=== PATIENT | female | born 1985 | race Asian ===

== ENCOUNTER 2021-11-16 16:12 | Emergency (ER) | payer OTHER, MEDICAID, SELFPAY ==
[2021-11-16 16:21] VITALS: BP 121/76; PULSE 95; RESP 20; TEMP 36.7; O2SAT 100; BMI 26.9
--- NOTE | 2021-11-16 17:23 | ED_ITS ---
HPI - General Adult General Time Seen by Provider: 17:23 Date Seen: 11/16/21 Chief complaint: Abdominal Pain Stated complaint: Lower Abdominal Pain Time Seen by Provider: 11/16/21 17:19 Source: patient and RN notes reviewed Mode of arrival: ambulatory Limitations: no limitations History of Present Illness HPI narrative: Patient is seen today in the ER after referral from women[facility]. She was having right sided abdominal pain a generalizes out into the abdomen since Friday. It has gotten progressively worse. It does seem like it comes in spasms or waves of worsening. She states it is almost like cramping. She had a pelvic ultrasound that was read by Radiology as negative. The field sales representative did note uterine prolapse which the patient has known she has had for about 4 years. She does not feel anything prolapsing out further. The field sales representative noted that she had increased pain when the probe came in contact with her cervix. She has not had any fevers, appetite has been okay, no nausea vomiting or diarrhea. Denies any urinary symptoms. No vaginal discharge. She had a negative urine HCG in clinic today. She is up pacing in the room due to the pain. She feels it radiating even into her groin. No history of kidney stones that she is aware of. Related Data Home Medications Medication Instructions Recorded Confirmed norgestimate 0.18 mg/0.215 mg/0.25 1 tab PO Q24H 11/16/21 11/16/21 mg-ethinyl estradiol 25 mcg tablet ([id number]) Allergies Allergy/AdvReac Type Severity Reaction Status Date / Time No Known Drug Allergies Allergy Verified 11/16/21 15:36 Review of Systems Status of ROS: Reports: 10 or more systems reviewed and unremarkable except as noted in History and below [facility] Surgical History (Updated 11/16/21 @ 17:41 by Fidelina Zepeda CNM) [place] teeth removed Social History Smoking Status: Never smoker Exam Const: Vital Signs, click to edit/add: Vital Signs - 24 hr 11/16/21 16:21 Temperature 98.1 F Pulse Rate [Right Pulse Oximeter] 95 Respiratory Rate 20 Blood Pressure [Le ft Upper Arm] 121/76 Pulse Oximetry 100 Oxygen Delivery Me thod Room Air Documenting provider has reviewed patient's vital signs: yes Common normals: average body habitus, oriented x3, no limitations, healthy appearing and alert General appearance: cooperative and in distress (Up pacing in the room) moderate HENMT: Common normals: normocephalic, head/scalp atraumatic, hearing grossly normal bilaterally, external ears normal, EAC's normal, external nose normal, nasal mucous membranes and turbinates normal, moist oral mucous membranes, oropharynx normal, dentition normal and gingiva normal Head and scalp: normocephalic and atraumatic Nose: external nose normal and nasal mucous membranes and turbinates normal External ear: external ears normal External auditory canal: EAC's normal Eye: Common normals: PERRL, EOMs intact bilaterally, conjunctivae normal and no scleral icterus Conjunctiva: conjunctiva(e) normal Pupil: PERRL Neck & C-Spine: Common normals: full ROM, no lymphadenopathy, supple, no meningeal signs, no JVD and thyroid normal Thyroid: thyroid normal Resp: Common normals: normal respiratory effort, no retractions, no use of accessory muscles and clear to auscultation bilaterally Auscultation: clear to auscultation bilaterally Cardio: Common normals: no JVD, regular rate, regular rhythm, S1 normal heart sound, S2 normal heart sound, no gallops, no clicks and no murmurs Rate: regular rate Rhythm: regular rhythm Heart sounds: S1 normal and S2 normal GI: Common normals: Normal to inspection, nondistended, normoactive bowel sounds present, soft to palpation, no hepatosplenomegaly, no masses and no bruits Palpation: soft, tender (Right lower quadrant and generalized out to lower abdomen/paraumbilical) and no hepatosplenomegaly : Common normals: no CVA tenderness Bladder/kidney exam: no CVA tenderness Back & Pelvis: Common normals: no CVA tenderness Neuro: Common normals: oriented x3 Sensorium/orientation: alert Meningeal signs: no meningeal signs Course Course Hospital Course: I am highly doubtful that uterine prolapse will give her acute abdominal pain of this nature. We will proceed with a CT noncontrast of her abdomen. The colicky nature and the inability to get comfortable really appears more like renal colic. We will obtain labs including urinalysis, CT abdomen pelvis noncontrast to better delineate this and help us to ensure there is no surgical pathology. I will order 30 mg IV Toradol, will reassess to make sure that this is improving her pain. Reevaluation(s) Reevaluation #1: Brought patient to report of her CT, reviewed that there is a solitary focus of an inflamed diverticulum. This would be consistent with diverticulitis. Pain returning again, will give morphine/zofran. Will initiate Unasyn IV for antibiotics. Time: 19:39 Vital Signs Vital signs: Initial Vital Signs Temperature 98.1 F 11/16/21 16:21 Temperature Source Temporal Artery Scan 11/16/21 16:21 Pulse Rate 95 11/16/21 16:21 Respiratory Rate 20 11/16/21 16:21 Blood Pressure 121/76 11/16/21 16:21 Blood Pressure Mean 91 11/16/21 16:21 Blood Pressure Position Sitting 11/16/21 16:21 Pulse Oximetry 100 11/16/21 16:21 Oxygen Delivery Method 11/16/21 16:21 Vital Signs Temperature 98.1 F 11/16/21 16:21 Pulse Rate 95 11/16/21 16:21 Respiratory Rate 20 11/16/21 16:21 Blood Pressure 121/76 11/16/21 16:21 Pulse Oximetry 100 11/16/21 16:21 Oxygen Delivery Method 11/16/21 16:21 Temperature 98.1 F 11/16/21 16:21 Pulse Rate 95 11/16/21 16:21 Respiratory Rate 20 11/16/21 16:21 Blood Pressure 121/76 11/16/21 16:21 Pulse Oximetry 100 11/16/21 16:21 Oxygen Delivery Method 11/16/21 16:21 Medical Decision Making Lab Data Lab results reviewed: Yes I reviewed the patient's lab results Labs: Lab Results 11/16/21 11/16/21 11/16/21 Range/Units 17:10 17:10 17:10 WBC 8.48 (4.50-11.00) K/uL RBC 4.81 (4.00-5.20) m/uL Hgb 12.5 (12.0-16.0) gm/dL Hct 39.8 (33.0-51.0) % MCV 83 (80-100) fL MCH 26 (26-34) pg MCHC 31 L (32-36) gm/dL RDW Coeff of Dominguez 12.7 (11.5-15.5) % Plt Count 336 (140-440) K/uL Neut % (Auto) 68.2 (42.0-72.0) % Lymph % (Auto) 24.9 (20-44) % [place]rick % (Auto) 4.8 (0.0-11.0) % Eos % (Auto) 1.5 (0.0-7.0) % Baso % (Auto) 0.5 (0.0-3.0) % Neut # (Auto) 5.78 (1.7-7.0) K/uL Lymph # (Auto) 2.11 (0.90-2.90) K/uL Warrick # (Auto) 0.40 (0.00-0.90) K/UL Eos # (Auto) 0.13 (0.00-0.50) K/uL Baso # (Auto) 0.04 (0.00-0.30) K/uL Abs Immat Gran (auto) 0.01 (0.00-0.30) K/uL Sodium 139 (135-149) mmol/L Potassium 3.8 (3.6-5.1) mmol/L Chloride 102 (96-114) mmol/L Carbon Dioxide 26 (20-32) mmol/L BUN 4 L (5-24) mg/dL Creatinine 0.7 (0.5-1.5) mg/dL Estimated Creat Clear 90.14 Estimated GFR 113 ml/min Glucose 110 (60-115) mg/dL Lactate (0.5-1.9) mmol/L Calcium 9.5 (8.4-10.6) mg/dL Total Bilirubin 0.3 (0.1-1.5) mg/dL AST 24 (12-35) U/L ALT 21 (4-35) U/L Alkaline Phosphatase 63 (40-150) U/L C-Reactive Protein 6.1 H (0.5-1.0) mg/dL Total Protein 8.3 (6.0-8.3) g/dL Albumin 4.6 (3.3-5.0) g/dL Urine Color Yellow (Yellow) Urine Appearance Clear (Clear) Urine pH 7.5 (5.0-8.5) Ur Specific [place] 1.015 (1.000-1.030) Urine Protein Negative (Negative) Urine Glucose (UA) Negative (Negative) Urine Ketones Negative (Negative) Urine Blood Negative (Negative) Urine Nitrite Negative (Negative) Urine Bilirubin Negative (Negative) Urine Urobilinogen 1.0 (0.2-1.0) Ur Leukocyte Esterase Trace A (Negative) Urine RBC 0-2 (0-2) Urine WBC 0-2 (0-5) Ur Squamous Epith Cells Many A (None-Few) Urine Bacteria None (None) SARS-CoV-2 (PCR) (Negative) 11/16/21 11/16/21 Range/Units 17:10 18:00 WBC (4.50-11.00) K/uL RBC (4.00-5.20) m/uL Hgb (12.0-16.0) gm/dL Hct (33.0-51.0) % MCV (80-100) fL MCH (26-34) pg MCHC (32-36) gm/dL RDW Coeff of Dominguez (11.5-15.5) % Plt Count (140-440) K/uL Neut % (Auto) (42.0-72.0) % Lymph % (Auto) (20-44) % Warrick % (Auto) (0.0-11.0) % Eos % (Auto) (0.0-7.0) % Baso % (Auto) (0.0-3.0) % Neut # (Auto) (1.7-7.0) K/uL Lymph # (Auto) (0.90-2.90) K/uL Warrick # (Auto) (0.00-0.90) K/UL Eos # (Auto) (0.00-0.50) K/uL Baso # (Auto) (0.00-0.30) K/uL Abs Immat Gran (auto) (0.00-0.30) K/uL Sodium (135-149) mmol/L Potassium (3.6-5.1) mmol/L Chloride (96-114) mmol/L Carbon Dioxide (20-32) mmol/L BUN (5-24) mg/dL Creatinine (0.5-1.5) mg/dL Estimated Creat Clear Estimated GFR ml/min Glucose (60-115) mg/dL Lactate 1.7 (0.5-1.9) mmol/L Calcium (8.4-10.6) mg/dL Total Bilirubin (0.1-1.5) mg/dL AST (12-35) U/L ALT (4-35) U/L Alkaline Phosphatase (40-150) U/L C-Reactive Protein (0.5-1.0) mg/dL Total Protein (6.0-8.3) g/dL Albumin (3.3-5.0) g/dL Urine Color (Yellow) Urine Appearance (Clear) Urine pH (5.0-8.5) Ur Specific [place] (1.000-1.030) Urine Protein (Negative) Urine Glucose (UA) (Negative) Urine Ketones (Negative) Urine Blood (Negative) Urine Nitrite (Negative) Urine Bilirubin (Negative) Urine Urobilinogen (0.2-1.0) Ur Leukocyte Esterase (Negative) Urine RBC (0-2) Urine WBC (0-5) Ur Squamous Epith Cells (None-Few) Urine Bacteria (None) SARS-CoV-2 (PCR) Negative SARS-CoV-2 (Negative) Imaging Data CT scan - abdomen: Attestation: I have reviewed the pertinent imaging results. Radiologist's impression: Patient: SKYLAR RUGGIERO Facility:?[facility] Patient ID:?[id number] Site Patient ID:?[id number]. Site :?[id number] Study:?CT Abdomen/Pelvis WITHOUT-11/16/2021 5:37:28 PM Ordering Physician:?Frank Tabor Final Report: INDICATION: Pelvic pain COMPARISON: Ultrasound of the pelvis from today. TECHNIQUE: CT examination of the abdomen and pelvis was performed without contrast enhancement using 3 mm thick axial sections from the lung bases through the pubic symphysis. Oral contrast was not administered. Please note that all CT scans at this facility use dose modulation, iterative reconstruction, and/or weight-based dosing when appropriate to reduce radiation dose to as low as reasonably achievable. FINDINGS: In the abdomen, the unenhanced liver, spleen, pancreas, and adrenals are normal in appearance. The unenhanced kidneys are normal in appearance. The gallbladder is normal in appearance. The abdominal aorta is normal in caliber with no sign of dilatation. There is no sign of retroperitoneal mass or adenopathy. The stomach, loops of small bowel, and colon in the abdomen are normal in appearance. There is a small fat containing periumbilical hernia. In the pelvis, the appendix is normal in appearance with no sign of inflammatory process. There is prominent inflammatory reaction around an inflamed diverticulum arising from the inferior sigmoid colon, findings of prominent diverticulitis. There is no sign of any additional diverticulosis elsewhere in the sigmoid colon. The loops of small bowel and rectum in the pelvis are normal in appearance. There is a 2.1 centimeter left ovarian cyst consistent with the appearance on ultrasound. The right ovary is normal in appearance. The uterus is normal in size, and there is inferior positioning of the cervix in the vagina, consistent with prolapse. There is a small amount of free fluid in the right pelvis, nonspecific. The urinary bladder is normal in appearance. There is no sign of pelvic or inguinal mass or adenopathy. There is no sign of free air or free fluid in the abdomen. There is no sign of free air or extraluminal air in the pelvis. The lung bases are clear. There is minimal scoliosis of the lumbar spine convex towards the right. IMPRESSION: CT of the pelvis shows prominent inferior sigmoid diverticulitis with a single, inflamed diverticulum. No sign of additional diverticulosis elsewhere in the sigmoid colon. Prolapse of the uterus through the vagina as seen on today`s ultrasound. 2.1 centimeter left ovarian cyst. Normal CT of the abdomen without contrast. Please note that all CT scans at this facility use dose modulation, iterative reconstruction, and/or weight-based dosing when appropriate to reduce radiation dose to as low as reasonably achievable. Dictated by Brian Mehta MD @ 11/16/2021 6:26:24 PM (Electronic Signature) Critical Care Time Critical Care Time Critical Care Time: No Discharge Plan Discharge Clinical Impression: Acute diverticulitis Patient Disposition: Home, Self-Care Condition: Stable Instructions: Diverticulitis (ED), Diverticulitis Diet (ED) Additional Instructions: Start oral antibiotic in the morning, have prescribed Augmentin 875 mg twice a day for 10 days. Can use Tylenol and ibuprofen as needed for pain management baseline. Script for oxycodone sent from [facility] for more severe pain, follow dosing instructions. If you are taking oxycodone, may need to use MiraLax and/or senna to prevent constipation from narcotics. Need to follow-up with your primary care provider next week for recheck. Activity Level: Activity as Tolerated Diet Detail: Follow handout on dietary recommendations while you have diverticulitis. Prescriptions: No Action norgestimate-ethinyl estradiol [[id number]] 0.18/0.215/0.25 mg-25 mcg tablet 1 tab PO Q24H Follow Up/Referrals: Provider,Not a Local [Primary Care Provider] - Stand Alone Forms: [employer] Info Instructions
[2021-11-16 17:35] LABS: Lactate* 1.7 mmol/L (0.5-1.9)
[2021-11-16 17:36] LABS: Basophils Absolute Auto 0.04 K/uL (0.00-0.30); Basophils Percent Auto 0.5 % (0.0-3.0); Eosinophils Absolute Auto 0.13 K/uL (0.00-0.50); Eosinophils Percent Auto 1.5 % (0.0-7.0); Hematocrit 39.8 % (33.0-51.0); Hemoglobin* 12.5 gm/dL (12.0-16.0); Immature Granulocytes Abs Auto 0.01 K/uL (0.00-0.30); Lymphocytes Absolute Auto 2.11 K/uL (0.90-2.90); Lymphocytes Percent Auto 24.9 % (20-44); Mean Corpuscular HGB Conc 31 gm/dL (32-36); Mean Corpuscular Hemoglobin 26 pg (26-34); Mean Corpuscular Volume 83 fL (80-100); Monocytes Percent Auto 4.8 % (0.0-11.0); Neutrophils Absolute Auto 5.78 K/uL (1.7-7.0); Neutrophils Percent Auto 68.2 % (42.0-72.0); Platelet Count* 336 K/uL (140-440); RDW Coefficient of Variation % 12.7 % (11.5-15.5); Red Blood Count 4.81 m/uL (4.00-5.20); White Blood Count* 8.48 K/uL (4.50-11.00)
[2021-11-16 17:39] LABS: Appearance Urine Clear (Clear); Bilirubin Urine Negative (Negative); Blood Urine Negative (Negative); Color Urine Yellow (Yellow); Glucose Urine Negative (Negative); Ketones Urine Negative (Negative); Leukocyte Esterase Urine Trace (Negative); Nitrite Urine Negative (Negative); Protein Urine Negative (Negative); Specific Gravity Urine 1.015 (1.000-1.030); pH Urine 7.5 (5.0-8.5)
[2021-11-16 17:47] LABS: Slide Review Reflex No
[2021-11-16 17:49] LABS: RBC Urine 0-2 (0-2); WBC Urine 0-2 (0-5)
[2021-11-16 17:50] LABS: Squamous Epithelial Cell Urine Many (None-Few)
[2021-11-16 17:56] LABS: Albumin* 4.6 g/dL (3.3-5.0); Chloride* 102 mmol/L (96-114); Sodium* 139 mmol/L (135-149)
[2021-11-16 17:57] LABS: Potassium* 3.8 mmol/L (3.6-5.1)
[2021-11-16 17:59] LABS: Bilirubin Total* 0.3 mg/dL (0.1-1.5); Creatinine* 0.7 mg/dL (0.5-1.5); Est. Creatinine Clearance* 90.14; Estimated Glomerular Filt Rate 113 ml/min
[2021-11-16 18:00] LABS: Alanine Aminotransferase* 21 U/L (4-35); Alkaline Phosphatase* 63 U/L (40-150); Aspartate Amino Transferase* 24 U/L (12-35); Blood Urea Nitrogen* 4 mg/dL (5-24); Calcium* 9.5 mg/dL (8.4-10.6); Carbon Dioxide* 26 mmol/L (20-32); Glucose* 110 mg/dL (60-115); Total Protein* 8.3 g/dL (6.0-8.3)
[2021-11-16 18:03] LABS: C Reactive Protein* 6.1 mg/dL (0.5-1.0)
[2021-11-16] MEDS: KETOROLAC 30 MG/ML inj IVP (18:03)
[2021-11-16 19:14] LABS: SARS PCR* Negative SARS-CoV-2 (Negative)
[2021-11-16] MEDS: MORPHINE 4 MG/ML INJ IVP (19:47)
[2021-11-16] MEDS: ONDANSETRON 2 MG/ML inj 4 MG IVP (19:47)
[2021-11-16] MEDS: AMPICILLIN/SULBACTAM 3 GM in 0.9 % SODIUM CHLORIDE Mini-bag 100 ML IVPB (19:55)
[2021-11-16] MEDS: MORPHINE 2 MG/ML inj IVP (20:46)
--- NOTE | 2021-11-16 21:16 | ED.NURSE ---
Pt was able to get 2 Rxs from [facility] machine. [facility] [place] pharmacy called and message left to cancel RX for augmentin
== END 2021-11-16 21:28 | disposition home or self-care (01) ==
PROVIDERS: Emergency Provider Family Medicine
DX: K57.92 Diverticulitis of intestine, part unspecified, without perforation or abscess without bleeding (principal)
CPT/HCPCS: 36415; 74176; 76830; 76856; 80053; 81001; 83605; 85025; 86140; 87635; 96365; 96375; 96376; 99284; 99285; J0295; J1885; J2270; J2405

== ENCOUNTER 2022-06-21 09:13 | Outpatient (CLI) | payer OTHER, MEDICAID, SELFPAY ==
[2022-06-21 10:39] LABS: HCG Qualitative* Negative (Negative)
== END 2022-06-21 09:14 | disposition home or self-care (01) ==
PROVIDERS: PCP Family Medicine; Visit Provider Internal Medicine
DX: R93.3 Abnormal findings on diagnostic imaging of other parts of digestive tract (principal); K57.30 Diverticulosis of large intestine without perforation or abscess without bleeding
CPT/HCPCS: 45380; 84703; 88305; J2250; J3010

== ENCOUNTER 2023-07-07 10:13 | Outpatient (CLI) | payer OTHER, SELFPAY ==
--- NOTE | 2023-07-07 10:45 | US_ITS ---
Patient: SKYLAR RUGGIERO Facility:?[facility] Patient ID:?[id number] Site Patient ID:?[id number]. Site :?[id number] Study:?US-Pelvis PELVIS TA & TV-07/07/2023 11:02:40 AM Ordering Physician:?MARY CARMEN CAMPBELL M.D. Final Report: INDICATION: Infertility TECHNIQUE: Transabdominal and transvaginal scanning was performed. Transvaginal scanning was performed to optimally evaluate the endometrium and adnexa. Ovarian blood flow was evaluated with color-flow and pulsed Doppler. COMPARISON: None. FINDINGS: The uterus is normal in size and shape and is retroflexed. The uterus measures 7.6 x 4.6 x 4.9 cm. No myometrial mass is evident. The endometrial stripe is normal in thickness at 4 mm. The ovaries are normal in size and contain a number of follicles. The right ovary measures 2.6 x 1.6 x 1.4 cm and left 2.7 x 2.0 x 1.2 cm. Ovarian blood flow is demonstrated with color-flow and pulsed Doppler. No adnexal mass is evident. No free fluid is demonstrated. IMPRESSION: Negative pelvic ultrasound. Dictated by Jeovany Shipley MD @ 07/07/2023 4:35:52 PM Signed by:?Jeovany Shipley MD @07/07/2023 4:35:52 PM (Electronic Signature)
== END 2023-07-07 10:14 | disposition home or self-care (01) ==
LOC: US 10:14
PROVIDERS: PCP Family Medicine; Visit Provider Internal Medicine Hematology & Oncology
DX: N97.9 Female infertility, unspecified (principal)
CPT/HCPCS: 76830; 76856

== ENCOUNTER 2023-09-29 10:52 | Outpatient (CLI) | payer OTHER, SELFPAY ==
--- OUTSIDE RECORDS SUMMARY | 2023-09-29 10:58 | XMS_ITS | Clinical Summary ---
Author Organization [facility] Address [address] [place] [address] Care Team Providers Care Hedis Abstractor Name Role Phone Drake Anderson MD Primary Care Provider [phone] Source Comments You are receiving this document as you are listed as the primary care provider,follow-up provider, or the patient has been referred to you for consultation.This is in compliance with the Medicare and[facility] EHR Incentive Program,which states Providers who transition their patient to another setting of careor provider of care or refers their patient to another provider of care shouldprovide summary care record for each transition of care or referral. [facility] Allergies No known active allergies Medications Medication Sig Dispensed Refills Start Date End Date Status 27-0.8 MG tablet Take 1 Tablet by mouth daily. Active letrozole (FEMARA) 2.5 MG tablet Take 1 Tablet (2.5 mg) by mouth daily for 5 days. 5 Tablet 2 09/15/2023 Active levonorgestrel-ethi nyl estrad (ALESSE) 0.1-20 MG-MCG tabletIndications:E ncounter for surveillance of contraceptive pills Take 1 Tablet by mouth daily. 84 Tablet 3 12/25/2022 09/25/2023 Discontinued Active Problems Problem Noted Date Diagnosed Date Infertility, female, secondary 09/15/2023 Diminished ovarian reserve 09/15/2023 Vaginal prolapse 01/22/2023 Ovarian cyst 11/16/2021 Acute diverticulitis 11/16/2021 History of prolapse of bladder 05/30/2017 S/P D&C (status post dilation and curettage) Indication for care in labor or delivery 016 Resolved Problems Problem Noted Date Diagnosed Date Resolved Date Prolapse of female pelvic organs 06/26/2023 06/26/2023 Female cystocele 06/26/2023 06/26/2023 Pelvic pain 06/26/2023 06/26/2023 Encounters Date Type Department Care Team Description 09/24/2023 10:55 PM CDT E-Visit [facility] [address] [place] [address] Arabella Polanco MD Chief Comp: QUESTIONS, GENERAL 09/15/2023 1:40 PM CDT Office Visit [facility] [address] [place] [address] Arabella Polanco MD Infertility, female, secondary (Primary Dx); Diminished ovarian reserve 08/21/2023 6:50 PM CDT E-Visit [address] [address] Drake Anderson MD Chief Comp: QUESTIONS, GENERAL 08/12/2023 4:40 PM CDT E-Visit [facility] [address] [place] [address] Arabella Polanco MD Chief Comp: QUESTIONS, GENERAL 07/21/2023 9:30 AM CDT Lab Visit [facility] [address] [place] [address] Infertility, female, secondary 07/09/2023 Telephone [facility] [address] [place] [address] Arabella Polanco MD Lab Questions 07/08/2023 Orders Only [address] [address] Drake Anderson MD 07/03/2023 Telephone [facility] [address] [place] [address] Arabella Polanco MD Orders Needed (Metallographic Technician ultrasound ) 07/01/2023 2:25 PM CDT Lab Visit [facility] [address] [place] [address] Infertility, female, secondary 07/01/2023 1:40 PM CDT Office Visit [facility] [address] [place] [address] Arabella Polanco MD Infertility, female, secondary (Primary Dx); Irregular menses from Last 3 Months Immunizations Name Administration Dates Next Due Influenza IIV4 (Quadrivalent) 0.5mL (70757) 09/2021,12/31/2020 Moderna Monovalent 12+ 05/04/2021,05/01/2020, Tdap 11/01/2020 Family History Medical History Relation Name Comments Diabetes, Type II Father Cataract Mother Thyroid Disorder Mother Inflammatory Bowel Disease Brother Relation Name Status Comments Father Alive Mother Alive Brother Alive Maternal Grandfather Maternal Grandmother Paternal Grandfather Paternal Grandmother Sister 1 Alive Sister 2 Alive Social History Tobacco Use Types Packs/Day Years Used Date Smoking Tobacco: Never Smokeless Tobacco: Never Tobacco Cessation:Counseling Given: Not Answered Alcohol Use Standard Drinks/Week Comments Yes 0 (1 standard drink = 0.6 oz pur e alcohol) occasions/ events PHQ-2 Answer Date Recorded PHQ-2 Score 0 12/25/2022 Financial Resource Strain Answer Date R ecorded Is it hard for you to pay fo r the very basics like food, housing, medical care or heating? No 12/24/2022 Food Insecurity Answer Date Recorded Does your food run out before you have the money to buy more? No 12/24/2022 Transportation Needs Answer Date Record ed Does a lack of transportatio n keep you from your medical appointments or from getting your medications? No 023 Sex and Gender Information Value Date Recorded Sex Assigned at Female 11/20/2021 8:01 AM CDT Gender Identity Female 11/20/2021 8:01 AM CDT Sexual Orientation Straight 11/20/2021 8: 01 AM CDT Last Filed Vital Signs Vital Sign Reading Time Taken Comments Blood Pressure 106/76 09/15/2023 1:39 PM CDT Pulse 83 09/15/2023 1:39 PM CDT Temperature - - Respiratory Rate 18 12/14/2019 2:13 PM CDT Oxygen Saturation - - Inhaled Oxygen Concentration - - Weight 73.5 kg (162 lb) 09/15/2023 1:39 PM CDT Height 160 cm (5' 2.99) 12/25/2022 10:09 AM CDT Body Mass Index 28.7 12/25/2022 10:09 AM CDT Plan of Treatment Upcoming Encounters Date Type Department Care Team (Late st Contact Info) Description 10/13/2023 8:40 AM CDT Appointment [facility] [address] [place] [address] Health Maintenance Due Date Last Done Comments Mammogram 1983 HepB (1) 09/04/2002 Colonoscopy 06/22/2022 06/21/2022, 06/21/2022 COVID-19 Vaccine ( season) 2022 05/04/2021, 05/01/2020, 04/03/2020 Influenza (#1) 2023 01/21/2022, 12/31/2020 Prediabetes: HGBA1C 06/30/2024 07/01/2023, 12/25/2022, 12/21/2021, Additional history exists Cervical Cancer Screening 12/13/2024 12/14/2019 Adult Preventive Visit 12/25/2024 , 12/21/2021, 12/14/2019 DTaP/Tdap/Td (2 - Tdap) 11/01/2030 11/01/2020 Zoster/Shingles (1 of 2) 09/04/2033 HIV Screening (Preventive Services) Completed 12/18/2019 Hep C Screening (Preventive Services) Completed 12/21/2021 HPV Vaccine Aged Out No longer eligi ble based on patient's age to complete this topic HepA Aged Out No longer eligi ble based on patient's age to complete this topic Hib Aged Out No longer eligi ble based on patient's age to complete this topic IPV (Polio) Aged Out No longer eligi ble based on patient's age to complete this topic MCV4 Aged Out No longer eligi ble based on patient's age to complete this topic Pneumococcal Aged Out No longer eligi ble based on patient's age to complete this topic Procedures Procedure Name Priority Date/Time Associated Diagnosis Comments PROGESTERONE ADULT Routine 07/21/2023 9: 26 AM CDT Infertility, female, secondary ULTRASOUND SC 07/08/2023 PROLACTIN Routine 07/01/2023 2:52 PM CDT Infertility, female, secondary ESTRADIOL Routine 07/01/2023 2:52 PM CDT Infertility, female, secondary LH Routine 07/01/2023 2:52 PM CDT Infertility, female, secondary FSH Routine 07/01/2023 2:52 PM CDT Infertility, female, secondary ANTI-MULLERIAN HORMONE,ADULT FEMALE Routine 07/01/2023 2:52 PM CDT Infertility, female, secondary PROLACTIN WITH REFLEX TO MACROPROLACTIN Routine 07/01/2023 2:52 PM CDT Infertility, female, secondary TSH, SENSITIVE (WITH REFLEX) Routine 07/01/2023 2:52 PM CDT Infertility, female, secondary HGB A1C Routine 07/01/2023 2:52 PM CDT Infertility, female, secondary COLONOSCOPY S 06/21/2022 HEPATITIS C ANTIBODY, WITH REFLEX Routine 12/21/2021 9:45 AM CDT Need for hepatitis C screening test HIV 1/2 AG/AB 4TH GEN Routine 12/18/2019 8:57 AM CDT Screening for HIV (human immunodeficiency virus) PAP TEST Routine 12/14/2019 3:14 PM CDT Screening for malignant neoplasm of cervix from Last 3 Months or Most Recently Relevant to Health Maintenance Results * Progesterone Adult (07/21/2023 9:26 AM CDT) Progesterone, Adult 13.9 ng/mL 07/21/2023 3:[address] [facility] Blood Venipuncture / Unknown 07/21/2023 9:26 AM CDT 07/21/2023 9:[address] [facility] - 07/21/2023 3:32 PM CDT Expected values for menstruating females Follicular Phase: <0.1-0.3 ng/mL Luteal Phase: 1.2-15.9 ng/mL Expected values for females 1st Trimester (4-12 weeks): 2.8-147.3 ng/mL 2nd Trimester (13-24 weeks): 22.5-95.3 ng/mL 3rd Trimester (25-36 weeks): 27.9-242.5 ng/mL rAabella Polanco MD LAB_1 Performing Organization Address [facility] Co de Phone Number [facility] [address] * ULTRASOUND SC (07/08/2023) Anatomical Region Laterality Modality Other Drake Anderson MD DUMMY/OTHER/AR * Prolactin (07/01/2023 2:52 PM CDT) Prolactin 7.3 3.3 - 26.7 ng/mL 07/02/2023 9:[address] [facility] Blood Venipuncture / Unknown 07/01/2023 2:52 PM CDT 07/01/2023 2:52 PM CDT Arabella Polanco MD LAB_1 Performing Organization Address [facility] Co de Phone Number [facility] [address] * (ABNORMAL) Anti-Mullerian Hormone, Adult Females (07/01/2023 2:52 PM CDT) Anti-M??lleri an Hormone, Adult Females 0.13(L) 0.18 - 5.68 ng/mL 07/02/2023 10:45 AM CDT [facility] Blood Venipuncture / Unknown 07/01/2023 2:52 PM CDT 07/01/2023 2:52 PM CDT Arabella Polanco MD LAB_1 Performing Organization Address [facility] de Phone Number [facility] [address] * Estradiol (07/01/2023 2:52 PM CDT) Estradiol 20 pg/mL 07/01/2023 8:05 PM CDT [facility] Blood Venipuncture / Unknown 07/01/2023 2:52 PM CDT 07/01/2023 2:52 PM CDT Narrative [facility] - 07/01/2023 8:05 PM CDT The drug mifepristone may cause interference with the estradiol assay leading to significant falsely elevated estradiol results for up to two weeks following last dose. Expected values for menstruating females Follicular phase: 21-251 pg/mL Mid cycle phase: 38-649 pg/mL Luteal phase: 21-312 pg/mL Expected values for post menopausal females On HRT: <10-144 pg/mL Not on HRT: <10-28 pg/mL Arabella Polanco MD LAB_1 Performing Organization Address [facility] de Phone Number [facility] [address] * LH (07/01/2023 2:52 PM CDT) LH 15 mIU/mL 07/01/2023 8:05 PM CDT [facility] Blood Venipuncture / Unknown 07/01/2023 2:52 PM CDT 07/01/2023 2:52 PM CDT Narrative [facility] - 07/01/2023 8:05 PM CDT Expected values for menstruating females Follicular Phase: 2-12 mIU/mL Mid-Cycle Peak: 8-89 mIU/mL Luteal Phase: 1-14 mIU/mL Expected values for postmenopausal females On HRT: 5-62 mIU/mL Arabella Polanco MD LAB_1 Performing Organization Address [facility] Co de Phone Number [facility] [address] [place] [address] * FSH (07/01/2023 2:52 PM CDT) FSH 20.5 mIU/mL 07/01/2023 8:[address] [facility] Blood Venipuncture / Unknown 07/01/2023 2:52 PM CDT 07/01/2023 2:[address] [facility] - 07/01/2023 8:05 PM CDT Expected values for mensturating females Follicular Phase: 3.0-8.1 mIU/mL Mid-Cycle Peak: 2.6-16.7 mIU/mL Luteal Phase: 1.4-5.5 mIU/mL Post Menopausal Females without HRT: 26.8-133.4 mIU/mL Arabella Polanco MD LAB_1 Performing Organization Address [facility] Co de Phone Number [facility] [address] [place] [address] * TSH with reflex to fT4 (not for treatment monitoring) (07/01/2023 2:52 PM CDT) TSH, Reflex 2.25 0.30 - 4.50 uIU/mL 07/01/2023 7:05 PM CDT [facility] Blood Venipuncture / Unknown 07/01/2023 2:52 PM CDT 07/01/2023 2:52 PM CDT Arabella Polanco MD LAB_1 Performing Organization Address [facility] Co de Phone Number [facility] [address] * (ABNORMAL) Hgb A1C (07/01/2023 2:52 PM CDT) Hemoglobin A1C 5.8(H) <=5.6 % 07/01/2023 8:[address] [facility] Estimated Average Glucose (Calc) 120 < 117 mg/dL 07/01/2023 8:[address] [facility] Comment:Estimated average gl ucose (eAG) converts A1c into glucose units (mg/dL) and estimates average glucose over the past approximately 3 months. The eAG reference interval (<117 mg/dL) corresponds to an A1c of <5.7%. Blood Venipuncture / Unknown 07/01/2023 2:52 PM CDT 07/01/2023 2:[address] [facility] - 07/01/2023 8:37 PM CDT For patients not previously diagnosed with diabetes: 5.7-6.4%: Increased risk for diabetes 6.5% and greater: Diagnostic for diabetes For patients diagnosed with diabetes: <8.0%: Goal of therapy for ages 18-75 Clinicians may recommend a higher or lower goal for specific individuals. Arabella Polanco MD LAB_1 [facility] [address] * COLONOSCOPY S (06/21/2022) Drake Anderson MD DUMMY/OTHER/AR * Hepatitis C Antibody, with Reflex (12/21/2021 9:45 AM CDT) Pathologist [facility] Hepatitis C Antibody Negative (Non Reactive) Negative (Non Reactive) 12/21/2021 4:[address] [facility] Comment:Antibodies to HCV no t detected. Does not exclude the possiblity of exposure to HCV. Blood Venipuncture / Unknown 12/21/2021 9:45 AM CDT 12/21/2021 9:45 AM CDT Drake Anderson MD LAB_1 [facility] [address] [place] [address], [facility] [phone] * HIV 1/2 Ag/Ab 4th Generation (12/18/2019 8:57 AM CDT) [facility] HIV 1/2 Antigen/Anti body (4th generation) Negative (Non Reactive) Negative (Non Reactive) 12/20/2019 12:[address] [facility] Comment:HIV-1 p24 Antigen an d HIV-1/HIV-2 Antibody not detected Blood Venipuncture / Unknown 12/18/2019 8:57 AM CDT 12/18/2019 8:57 AM CDT Drake Anderson MD LAB_1 Performing Organization Address City/[facility]/ZIP Co de Phone Number [facility] [address] [place] [address], [facility] [phone] * PAP Test (12/14/2019 3:14 PM CDT) [facility] Case Report Pap ? Case: [id number] ? Authorizing Provider: ??Drake Anderson MD ?Collected: ? 12/14/2019 1514 ? Ordering Location: ? [facility] ?Received: ?12/14/2019 1520 ? Practice ? First Screen: ?Kat Wagner CT ? (ASCP) ? Specimen: ?Pap Test, Routine, Cervix/Endocervix ? 12/20/2019 7:01 AM [facility] Pap Specimen Adequacy Satisfactory for evaluation, endocervical/mcginnis sformation zone component absent. 12/20/2019 7:01 AM [facility] Pap Interpretation Negative for intraepithelial lesion or malignancy (NILM). 12/20/2019 7:01 AM [facility] Pap Disclaimer The Pap test is a screening test designed to aid in the detection of cervical cancer and its precursor lesions. It is not a diagnostic procedure and should not be used as the sole means of detecting cervical cancer. Both false-positive and false-negative results may occur. 12/20/2019 7:01 AM [facility] Gross Description The specimen is received in SurePath fixative and properly labeled. 1 Pap-stained SurePath slide is prepared. 12/20/2019 7:01 AM [facility] Embedded Images 0 7:01 AM [facility] Other Specimen Type ENTIRE ENDOCERVIX / Unknown 12/14/2019 3:14 PM CDT 12/14/2019 3:20 PM CDT Comment:LMP: No LMP recorded . Drake Anderson MD LAB PATHOLOGY [address] [address], [facility] [phone] from Last 3 Months or Most Recently Relevant to Health Maintenance Care Teams Hedis Abstractor Relationship Specialty [place] [address] [place] [address] PCP - General Family Practice 05/24/20
--- OUTSIDE RECORDS SUMMARY | 2023-09-29 10:58 | XMS_ITS | Encounter Summary ---
Author Organization [facility] Address [address] [place] [address] Care Team Providers Care Charger Name Role Phone Drake Anderson MD Primary Care Provider [phone] Reason for Visit * Reason Comments QUESTIONS, GENERAL Entered automaticall y based on patient selection in [employer]. Encounter Details Date Type Department Care Team (Late st Contact Info) Description 09/24/2023 10:55 PM CDT E-Visit [facility] [address] [place] [address] [place] [address] [place] [address] Chief Comp: QUESTIONS, GENERAL Social History Tobacco Use Types Packs/Day Years Used Date Smoking Tobacco: Never Smokeless Tobacco: Never Alcohol Use Standard Drinks/Week Comments Yes 0 [...] Orientation Straight 11/20/2021 8: 01 AM CDT documented as of this encounter Plan of Treatment Upcoming Encounters Date Type Department Care Team (Late st Contact Info) Description 10/13/2023 8:[address] [facility] [address] [place] [address] documented as of this encounter Visit Diagnoses Not on filedocumented in this encounter Care Teams Charger Relationship Specialty [place] [address] [place] [address] PCP - General Family Practice 05/24/20 documented as of this encounter
--- OUTSIDE RECORDS SUMMARY | 2023-09-29 10:58 | XMS_ITS | Clinical Summary ---
Author Organization [facility] Address [place], [place] [address] Care Team Providers Care Transition Program Manager Name Role Phone Drake Anderson MD Primary Care Provider + [phone] Allergies No known active allergies Medications No known medications Social History Tobacco Use Types Packs/Day Years Used Date Smoking Tobacco: Never Smokeless Tobacco: Never Tobacco Cessation:Counseling Given: Not Answered Alcohol Use Standard Drinks/Week Comments Not Currently 0 (1 standard drink = 0.6 oz pur e alcohol) Sex and Gender Information Value Date Recorded Sex Assigned at Not on file Gender Identity Not on file Sexual Orientation Not on file Obstetrics History Last Filed Vital Signs Vital Sign Reading Time Taken Comments Blood Pressure 116/69 05/20/2022 2:13 PM PAYROLL OFFICER Pulse 79 05/20/2022 2:13 PM PAYROLL OFFICER Temperature 37 ??C (98.6 ??F) 05/20/2022 2:13 PM PAYROLL OFFICER Respiratory Rate 20 05/20/2022 2:13 PM PAYROLL OFFICER Oxygen Saturation 100% 05/20/2022 2:13 PM PAYROLL OFFICER Inhaled Oxygen Concentration - - Weight - - Height - - Body Mass Index - - Plan of Treatment Health Maintenance Due Date Last Done Comments Tdap 09/04/1994 Depression screening for age 12+ 1995 HIV for age 15-65 09/04/1998 BMI (ht and wt on same day) for age 18+ 09/04/2001 Hepatitis C screening for ag e 18-79 09/04/2001 Tetanus booster 2003 Pap test for age 21-65 09/04/2004 COVID-19 vaccine series ( season) 2022 05/04/2021, 05/01/2020, 04/03/2020 Influenza for age 9-49 11/16/2023 Pneumococcal series for age 6-64 Aged Out No longer eligible b ased on patient's age to complete this topic Care Teams Transition Program Manager Relationship Specialty [place] [address] [place] [address] PCP - General Family Practice 05/20/22
--- OUTSIDE RECORDS SUMMARY | 2023-09-29 10:59 | XMS_ITS | Encounter Summary ---
Author Organization [facility] Address [address] [place] [address] Care Team Providers Care Airframe Design Engineer Name Role Phone Drake Anderson MD Primary Care Provider [phone] Reason for Visit * Reason Comments QUESTIONS, GENERAL Entered automaticall y based on patient selection in [employer]. Encounter Details Date Type Department Care Team (Late st Contact Info) Description 08/21/2023 6:50 PM CDT E-Visit [facility] [id number] [place] [address] [place] [address] [place], [place] [id number] Chief Comp: QUESTIONS, GENERAL Social History Tobacco [...] Info) Description 10/13/2023 8:40 AM CDT Appointment [facility] [address] [place] [address] documented as of this encounter Visit Diagnoses Not on filedocumented in this encounter Care Teams Airframe Design Engineer Relationship Specialty [place] [address] [place] [address] PCP - General Family Practice 05/24/20 documented as of this encounter
--- OUTSIDE RECORDS SUMMARY | 2023-09-29 10:59 | XMS_ITS | Encounter Summary ---
Author Organization [facility] Address [address] [place] [address] Care Team Providers Care Grassland Conservationist Name Role Phone Drake Anderson MD Primary Care Provider Reason for Visit * Reason Comments INFERTILITY Encounter Details Date Type Department Care Team (Late st Contact Info) Description 09/15/2023 1:40 PM CDT Office Visit [facility] [id number] [place] [address] [place] [id number] [place] [address] Infertility, female, secondary (Primary Dx); Diminished ovarian reserve Social History Tobacco Use Types Packs/Day Years [...] AM CDT documented as of this encounter Last Filed Vital Signs Vital Sign Reading Time Taken Comments Blood Pressure 106/76 09/15/2023 1:39 PM CDT Pulse 83 09/15/2023 1:39 PM CDT Temperature - - Respiratory Rate - - Oxygen Saturation - - Inhaled Oxygen Concentration - - Weight 73.5 kg (162 lb) 09/15/2023 1:39 PM CDT Height - - Body Mass Index 28.7 12/25/2022 10:09 AM CDT documented in this encounter Patient Instructions * Patient Instructions* Arabella Polanco MD - 09/15/2023 1:40 PM CDT Here is the contact info for two local clinics which can provide the fertility services you need: [facility] [place]: [facility] [place] State requirements regarding infertility coverage: [email or web address]/learn/[email or web address]-[email or web address]-[email or web address]-[email or web address]-[email or web address]/ Fertility insurance: - Progyny - [employer] INSTRUCTIONS Start Letrozole on day 3 of your cycle. Take from days 3 - 7 (5 days total) On day 10 - begin using ovulation predictor kit daily On day 10, 12, 14, 16 - interocurse Day 21-23: Come in for progesterone blood draw Ultrasound after each period starts Call with any questions. Why this approach: Letrozole hyperstimulation is done to produce mature follicles (eggs). By maturing the follicle thepossibility of achieving is multiplied. This also means risk of twins (or sometimes more)is increased compared to someone who does not use fertility medicine. Generally, we limit the use of letrozole to three cycles. Follow-up: If you do not conceive, a period will normally occur 12-17 days after ovulation. If you do not havea period after 17 days, check a test at home (you can call the clinic for a test if you prefer). Side effects: Side effects may include headache, moodiness, breast tenderness, nervousness, dizziness, nausea, fatigue, and visual disturbances. Sometimes the ovaries can temporarily grow very large and cause complications due to size and other disturbances. documented in this encounter Progress Notes * Arabella Polanco MD - 09/15/2023 1:40 PM CDT DUST MOP MAKER VISIT 09/15/2023 Subjective: Chante Marquis is 38 y.o. p/f f/u of secondary infertility. No medical changessince last visit. Has been using OPKs and they have been positive. Exam: BP 106/76 (BP Location: Right Arm, BP Cuff Size: Regular) Pulse 83 Wt 73.5 kg (162 lb) LMP 08/24/2023 (Exact Date) No BMI 28.70 kg/m?? Estimated body mass index is 28.7 kg/m?? as calculated from the following: Height as of 12/25/22: 5' 2.99 (1.6 m). Weight as of this encounter: 73.5 kg (162 lb). No further exam, all in counseling Previous lab/imaging studies: 07/01/23 HgbA1c 5.8% TSH normal Prolactin normal AMH 0.13 FSH normal LH normal Estradiol normal 07/21/23 Progesterone c/w ovulation PUS - done at [facility] 07/06 and normal per patient. She will send report via [employer]. Impression: 38 y.o. with secondary infertility due to diminished ovarian reserve. We discussed this diagnosis and what it means. Dionne was understandably upset. We discussed options includingOI, OI + IUI, and IVF including with egg donor. I advised that I am okay with trying OI but I am worried that it will not be successful. We discussed r/b/a including risk of a multiple . After discussion, we made a plan to try up to 3 cycles of Letrozole. Plan: - Letrozole 2.5 mg day 3-7 of cycle - Timed intercourse - Progesterone level day 21- RTC pending above Arabella Polanco MD Obstetrics & Gynecology documented in this encounter Plan of Treatment Upcoming Encounters Date Type Department Care Team (Late st Contact Info) Description 10/13/2023 8:40 AM CDT Appointment [facility] [id number] [place] [address] Scheduled Orders Name Type Priority Associated Diagnoses Orde r Schedule Progesterone Adult Lab Routine Infertility, female, secondary Expected: 09/15/2023, Expires: 12/14/2023 documented as of this encounter Visit Diagnoses Diagnosis Infertility, female, secondary- Primary Female infertility of unspecified origin Diminished ovarian reserve documented in this encounter Care Teams Grassland Conservationist Relationship Specialty [place] [address] [place] [address] PCP - General Family Practice 05/24/20 documented as of this encounter
--- OUTSIDE RECORDS SUMMARY | 2023-09-29 10:59 | XMS_ITS | Encounter Summary ---
Author Organization [facility] Address [address] [place] [address] Care Team Providers Care Rice Dryer Mechanic Name Role Phone Drake Anderson MD Primary Care Provider Encounter Details Date Type Department Care Team (Late st Contact Info) Description 07/08/2023 Orders Only [facility] [id number] [place] [address] [phone] [place] [address] [place], [place] [phone] Social History Tobacco Use Types Packs/Day Years [...] Description 10/13/2023 8:[address] [facility] [address] [place] [address] documented as of this encounter Procedures Procedure Name Priority Date/Time Associated Diagnosis Comments ULTRASOUND SC 07/08/2023 documented in this encounter Results * ULTRASOUND SC (07/08/2023) Anatomical Region Laterality Modality Other Drake Anderson MD DUMMY/OTHER/AR documented in this encounter Visit Diagnoses Not on filedocumented in this encounter Care Teams Rice Dryer Mechanic Relationship Specialty [place] [address] [place] [address] PCP - General Family Practice 05/24/20 documented as of this encounter
--- OUTSIDE RECORDS SUMMARY | 2023-09-29 10:59 | XMS_ITS | Encounter Summary ---
Author Organization [facility] Address [address] [place] [address] Care Team Providers Care Photoengraving Etcher Apprentice Name Role Phone Drake Anderson MD Primary Care Provider [phone] Encounter Details Date Type Department Care Team (Late st Contact Info) Description 07/01/2023 2:25 PM CDT Lab Visit [facility] [address] [place] [address] [phone] Infertility, female, secondary Social History Tobacco Use Types Packs/Day Years [...] Info) Description 10/13/2023 8:40 AM CDT Appointment [facility] [address] [place] [address] documented as of this encounter Procedures Procedure Name Priority Date/Time Associated Diagnosis Comments PROLACTIN WITH REFLEX TO MACROPROLACTIN Routine 07/01/2023 2:52 PM CDT Infertility, female, secondary PROLACTIN Routine 07/01/2023 2:52 PM CDT Infertility, [...] 07/01/2023 2:52 PM CDT Infertility, female, secondary documented in this encounter Results * Prolactin (07/01/2023 2:52 PM CDT) Prolactin 7.3 3.3 - 26.7 ng/mL 07/02/2023 9:28 AM CDT [facility] Blood Venipuncture / Unknown 07/01/2023 2:52 PM CDT 07/01/2023 2:52 PM CDT Arabella Polanco MD LAB_1 [facility] [address] * Estradiol (07/01/2023 2:52 PM CDT) Estradiol 20 pg/mL 07/01/2023 8:05 PM CDT [facility] Blood Venipuncture / Unknown 07/01/2023 2:52 PM CDT 07/01/2023 2:52 PM CDT [facility] - 07/01/2023 8:05 PM CDT [...] Arabella Polanco MD LAB_1 Performing Organization Address [facility] Co de Phone Number [facility] [address] [place] [address] * LH (07/01/2023 2:52 PM CDT) LH 15 mIU/mL 07/01/2023 8:05 PM CDT [facility] Blood Venipuncture / Unknown 07/01/2023 2:52 PM CDT 07/01/2023 2:52 PM CDT [facility] - 07/01/2023 8:05 PM CDT Expected values for menstruating females Follicular Phase: 2-12 mIU/mL Mid-Cycle Peak: 8-89 mIU/mL Luteal Phase: 1-14 mIU/mL Expected values for postmenopausal females On HRT: 5-62 mIU/mL Arabella Polanco MD LAB_1 Performing Organization Address [facility] Co de Phone Number [facility] [address] [place] [address] * FSH (07/01/2023 2:52 PM CDT) FSH 20.5 mIU/mL 07/01/2023 8:05 PM CDT [facility] Blood Venipuncture / Unknown 07/01/2023 2:52 PM CDT 07/01/2023 2:52 PM CDT Narrative [facility] - 07/01/2023 8:05 PM CDT Expected values for mensturating females Follicular Phase: 3.0-8.1 mIU/mL Mid-Cycle Peak: 2.6-16.7 mIU/mL Luteal Phase: 1.4-5.5 mIU/mL Post Menopausal Females without HRT: 26.8-133.4 mIU/mL Arabella Polanco MD LAB_1 Performing Organization Address [facility] Co de Phone Number [facility] [address] * (ABNORMAL) Anti-Mullerian Hormone, Adult Females (07/01/2023 2:52 PM CDT) Anti-M??lleri an Hormone, Adult Females 0.13(L) 0.18 - 5.68 ng/mL 07/02/2023 10:45 AM CDT [facility] Blood Venipuncture / Unknown 07/01/2023 2:52 PM CDT 07/01/2023 2:52 PM CDT Arabella Polanco MD LAB_1 Performing Organization Address [facility] Co de Phone Number [facility] [address] * TSH with reflex to fT4 (not for treatment monitoring) (07/01/2023 2:52 PM CDT) TSH, Reflex 2.25 0.30 - 4.50 uIU/mL 07/01/2023 7:05 PM CDT [facility] Blood Venipuncture / Unknown 07/01/2023 2:52 PM CDT 07/01/2023 2:52 PM CDT Arabella Polanco MD LAB_1 Performing Organization Address [facility] Co de Phone Number [facility] [address] * (ABNORMAL) Hgb A1C (07/01/2023 2:52 PM CDT) Hemoglobin A1C 5.8(H) <=5.6 % 07/01/2023 8:37 PM CDT [facility] Estimated Average Glucose (Calc) 120 < 117 mg/dL 07/01/2023 8:37 PM CDT [facility] Comment:Estimated average gl ucose (eAG) converts A1c into glucose units (mg/dL) and estimates average glucose over the past approximately 3 months. The eAG reference interval (<117 mg/dL) corresponds to an A1c of <5.7%. Blood Venipuncture / Unknown 07/01/2023 2:52 PM CDT 07/01/2023 2:52 PM CDT Narrative [facility] - 07/01/2023 8:37 PM CDT For patients not previously diagnosed with diabetes: 5.7-6.4%: Increased risk for diabetes 6.5% and greater: Diagnostic for diabetes For patients diagnosed with diabetes: <8.0%: Goal of therapy for ages 18-75 Clinicians may recommend a higher or lower goal for specific individuals. Arabella Polanco MD LAB_1 Performing Organization Address [facility] Co de Phone Number [facility] [address] documented in this encounter Visit Diagnoses Diagnosis Infertility, female, secondary Female infertility of unspecified origin documented in this encounter Care Teams Photoengraving Etcher Apprentice Relationship Specialty [place] [address] [place] [address] PCP - General Family Practice 05/24/20 documented as of this encounter
--- OUTSIDE RECORDS SUMMARY | 2023-09-29 10:59 | XMS_ITS | Encounter Summary ---
Author Organization [facility] Address [address] [place] [address] Care Team Providers Care Trench Digger Name Role Phone Drake Anderson MD Primary Care Provider [phone] Reason for Visit * Reason Comments Orders Needed Screen Printing Stencil Preparer ultrasound Encounter Details Date Type Department Care Team (Late st Contact Info) Description 07/03/2023 Telephone [facility] [address] [place] [address] [place] [address] [place], [place] [phone] Orders Needed (Screen Printing Stencil Preparer ultrasound ) Social History Tobacco Use Types Packs/Day Years [...] AM CDT documented as of this encounter Nursing Notes * Ludmila Cárdenas RN - 07/03/2023 9:58 AM CDT Patient messaged in reporting that order was handled by [facility]. Will close this encounter. Ludmila Cárdenas RN [facility] MANAGER ENGAGEMENT * Ludmila Cárdenas RN - 07/03/2023 9:23 AM CDT Called and spoke with CA at [facility] Radiology Department to review that it is unfortunately how our system is set up for printing orders. They will review with photovoltaic testing technician and callback with further input. Ludmila Cárdenas RN [facility] MANAGER ENGAGEMENT * Sujata Up - 07/03/2023 8:53 AM CDT Orders - Imaging What order is being requested? Received call from [facility] regarding pearl diver ultrasound order faxed to them for this pt. They need the order to state pearl diver/ pelvic ultrasound in the actual order. The current order only lists it at the top of the page, not in the actual order Why is this order being requested? [place] requesting When were you seen last for this concern? By whom? Order written 07/01/23, Dr. Polanco Additional comments (related to the above concern): Please fax new order to [phone], or call [phone] for clarification documented in this encounter Plan of Treatment Upcoming Encounters Date Type Department Care Team (Late st Contact Info) Description 10/13/2023 8:[address] [facility] [address] [place] [address] documented as of this encounter Visit Diagnoses Not on filedocumented in this encounter Care Teams Trench Digger Relationship Specialty [place] [address] [place] [address] PCP - General Family Practice 05/24/20 documented as of this encounter
--- OUTSIDE RECORDS SUMMARY | 2023-09-29 10:59 | XMS_ITS | Encounter Summary ---
Author Organization [facility] Address [address] [place] [address] Care Team Providers Care Banquet Steward Name Role Phone Drake Anderson MD Primary Care Provider [phone] Reason for Referral * Procedure/Equipment (Routine) - Incomplete Specialty Diagnoses / Procedures Referred By Trisha king Referred To Contact Diagnoses Infertility, female, secondary Procedures OBGYN Pelvic/Utility Bill Collection Clerk [place]tras[place] [id number] [place] [address] Referral ID Status Reason Start Date Expiration Date V isits Requested Visits Authorized [id number] Incomplete 07/01/2023 09/29/2024 1 1 Reason for Visit * Reason Comments Menstrual Problems Has been pill since Dec 2022. When on pill, cycles were 28 days. Now cycles are anywhere from 27-40. Bleeding lasts 3-4 days. Moderate bleeding. Changes menstrual cups @3-4hr. No cramping. Did have small clots during this past cycle. Negative test. Encounter Details Date Type Department Care Team (Late Contact Info) Description 07/01/2023 1:40 PM CDT Office Visit [facility] [id number] [place] [address] [place] [address] [place] [address] Infertility, female, secondary (Primary Dx); Irregular menses Social History Tobacco Use Types Packs/Day Years [...] Reading Time Taken Comments Blood Pressure 106/76 07/01/2023 1:46 PM CDT Pulse 83 07/01/2023 1:46 PM CDT Temperature - - Respiratory Rate - - Oxygen Saturation - - Inhaled Oxygen Concentration - - Weight 73.5 kg (162 lb) 07/01/2023 1:46 PM CDT Height - - Body Mass Index 28.7 12/25/2022 10:09 AM CDT documented in this encounter Patient Instructions * Patient Instructions* Arabella Polanco MD - 07/01/2023 1:40 PM CDT Labs day 3 - FSH, LH, estradiol Any day - HgbA1c, TSH, prolactin, AMH Pelvic US - day 7-10 Lab day 21-23 - progesterone See you after these are done documented in this encounter Progress Notes * Arabella Polanco MD - 07/01/2023 1:40 PM CDT IMPROVEMENT ENGINEER VISIT 07/01/2023 Chief Complaint: Fertility problems HPI: Chante Marquis is 37 y.o. Patient's last menstrual period was 06/29/2023 (exact date)., who presents for a infertility consultation. She and her partner have been trying to conceive for 12/2022. They have not tried OPKs. She reports undergoing menarche at age 9yo. She has since had q28 day cycles. She has mp history of abnormal pap smears or procedures on her cervix or uterus. She denies a history of PID, GC or CT, or ruptured appy. She has no history of abdominal or pelvic surgery. She has nomedical problems. She denies facial, chest or abdominal hair growth. She is taking a daily PNV. Partner does have proven fertility. To her knowledge, he has no history of /GI surgery in the past. OB History Para Term AB Living 3 3 2 1 0 2 SAB IAB Ectopic Multiple Live Births 0 0 0 0 0 # Outcome Date GA Lbr Percy/2nd Weight Sex Delivery Anes PTL Lv 3 Term 10/2018 Vag-Spont 2 Term 05/2017 Vag-Spont 1 2015 18w3d FD Comments: sepsis, cord prolapse IMPROVEMENT ENGINEER Hx: No abnl paps/STDs Past Medical History: Diagnosis Date Female cystocele 06/26/2023 Prolapse of female pelvic organs 06/26/2023 PSH: none Meds: PNV Soc: Nonsmoker Family Hx: No thrombophilia ROS: See HPI Exam: BP 106/76 (BP Location: Right Arm, BP Cuff Size: Regular) Pulse 83 Wt 162 lb (73.5 kg) LMP 06/29/2023 (Exact Date) No BMI 28.70 kg/m?? Estimated body mass index is 28.7 kg/m?? as calculated from the following: Height as of 12/25/22: 5' 2.99 (1.6 m). Weight as of this encounter: 162 lb (73.5 kg). No further exam, all in counseling Previous lab/imaging studies: TSH 01/2023 normal Impression: 37 y.o. with secondary infertility and irregular menses. Plan: I reviewed Chante Marquis's menstrual history today in detail, as well as her past gynecologic history. We discussed the normal physiology of the menstrual cycle. With respect to infertility, we discussed the 5 core reasons for infertility: cervical, tubal, ovarian, uterine and male factor. We discussed the clinical evaluation for each, as well as the typical reported history which would be concerning for one of these etiologies. Since she is day 3 of her cycle today, we will obtain time independent and day 3 labs today (prolactin, hgb A1C, TSH, AMH, FSH, LH and estradiol). Ordered for progesterone level around day 21-23. Labs today Progesterone level drawn day (this will show us by blood work whether you ovulated this month) PUS day 7-10 Will consider HSG and semen analysis pending above findings RTC once above completed. All of her questions were answered and she is in agreement with the above. Arabella Polanco MD Obstetrics & Gynecology documented in this encounter Plan of Treatment Upcoming Encounters Date Type Department Care Team (Late st Contact Info) Description 10/13/2023 8:40 AM CDT Appointment [facility] [address] [place] [address] Scheduled Orders Name Type Priority Associated Diagnoses Orde r Schedule OBGYN Pelvic/Utility Bill Collection Clerk Ultrasound Imaging New Routine Infertility, female, secondary Expected: 07/01/2023 (Approximate), Expires: 06/30/2024 documented as of this encounter Results * Progesterone Adult (07/21/2023 9:26 AM CDT) Progesterone, Adult 13.9 ng/mL 07/21/2023 3:32 PM CDT [facility] Blood Venipuncture / Unknown 07/21/2023 9:26 AM CDT 07/21/2023 9:26 AM CDT [facility] - 07/21/2023 3:32 PM CDT Expected values for menstruating females Follicular Phase: <0.1-0.3 ng/mL Luteal Phase: 1.2-15.9 ng/mL Expected values for females 1st Trimester (4-12 weeks): 2.8-147.3 ng/mL 2nd Trimester (13-24 weeks): 22.5-95.3 ng/mL 3rd Trimester (25-36 weeks): 27.9-242.5 ng/mL Arabella Polanco MD LAB_1 Performing Organization Address [facility] Co de Phone Number [facility] [address] [place] [address] * Estradiol (07/01/2023 2:52 PM CDT) Estradiol 20 pg/mL 07/01/2023 8:05 PM CDT [facility] Blood Venipuncture / Unknown 07/01/2023 2:52 PM CDT 07/01/2023 2:52 PM CDT [facility] - 07/01/2023 8:05 PM CDT [...] Arabella Polanco MD LAB_1 Performing Organization Address [facility] de Phone Number [facility] [address] [place] [address] * LH (07/01/2023 2:52 PM CDT) LH 15 mIU/mL 07/01/2023 8:05 PM CDT [facility] Blood Venipuncture / Unknown 07/01/2023 2:52 PM CDT 07/01/2023 2:52 PM CDT [facility] - 07/01/2023 8:05 PM CDT Expected values for menstruating females Follicular Phase: 2-12 mIU/mL Mid-Cycle Peak: 8-89 mIU/mL Luteal Phase: 1-14 mIU/mL Expected values for postmenopausal females On HRT: 5-62 mIU/mL Arabella Polanco MD LAB_1 Performing Organization Address [facility] Co de Phone Number [facility] [address] [place] [address] * FSH (07/01/2023 2:52 PM CDT) FSH 20.5 mIU/mL 07/01/2023 8:05 PM CDT [facility] Blood Venipuncture / Unknown 07/01/2023 2:52 PM CDT 07/01/2023 2:52 PM CDT Narrative [facility] - 07/01/2023 8:05 PM CDT Expected values for mensturating females Follicular Phase: 3.0-8.1 mIU/mL Mid-Cycle Peak: 2.6-16.7 mIU/mL Luteal Phase: 1.4-5.5 mIU/mL Post Menopausal Females without HRT: 26.8-133.4 mIU/mL Arabella Polanco MD LAB_1 Performing Organization Address [facility] Co de Phone Number [facility] [address] * (ABNORMAL) Anti-Mullerian Hormone, Adult Females (07/01/2023 2:52 PM CDT) Anti-M??lleri an Hormone, Adult Females 0.13(L) 0.18 - 5.68 ng/mL 07/02/2023 10:45 AM CDT [facility] Blood Venipuncture / Unknown 07/01/2023 2:52 PM CDT 07/01/2023 2:52 PM CDT Arabella Polanco MD LAB_1 Performing Organization Address [facility] Co de Phone Number [facility] [address] * TSH with reflex to fT4 (not for treatment monitoring) (07/01/2023 2:52 PM CDT) TSH, Reflex 2.25 0.30 - 4.50 uIU/mL 07/01/2023 7:05 PM CDT [facility] Blood Venipuncture / Unknown 07/01/2023 2:52 PM CDT 07/01/2023 2:52 PM CDT Arabella Polanco MD LAB_1 Performing Organization Address [facility] Co de Phone Number [facility] [address] * (ABNORMAL) Hgb A1C (07/01/2023 2:52 PM CDT) Hemoglobin A1C 5.8(H) <=5.6 % 07/01/2023 8:37 PM CDT [facility] Estimated Average Glucose (Calc) 120 < 117 mg/dL 07/01/2023 8:37 PM CDT [facility] Comment:Estimated average gl ucose (eAG) converts A1c into glucose units (mg/dL) and estimates average glucose over the past approximately 3 months. The eAG reference interval (<117 mg/dL) corresponds to an A1c of <5.7%. Blood Venipuncture / Unknown 07/01/2023 2:52 PM CDT 07/01/2023 2:52 PM CDT Narrative [facility] - 07/01/2023 8:37 PM CDT For patients not previously diagnosed with diabetes: 5.7-6.4%: Increased risk for diabetes 6.5% and greater: Diagnostic for diabetes For patients diagnosed with diabetes: <8.0%: Goal of therapy for ages 18-75 Clinicians may recommend a higher or lower goal for specific individuals. Arabella Polanco MD LAB_1 Performing Organization Address [facility] Co de Phone Number [facility] [address] documented in this encounter Visit Diagnoses Diagnosis Infertility, female, secondary- Primary Female infertility of unspecified origin Irregular menses Irregular menstrual cycle documented in this encounter Care Teams Banquet Steward Relationship Specialty [place] [address] [place] [address] PCP - General Family Practice 05/24/20 documented as of this encounter
--- OUTSIDE RECORDS SUMMARY | 2023-09-29 10:59 | XMS_ITS | Encounter Summary ---
Author Organization [facility] Address [address] [place] [address] Care Team Providers Care Teacher [employer] Name Role Phone Drake Anderson MD Primary Care Provider [phone] Reason for Visit * Reason Comments QUESTIONS, GENERAL Entered automaticall y based on patient selection in [facility]. Encounter Details Date Type Department Care Team (Late st Contact Info) Description 08/12/2023 4:40 PM CDT E-Visit [facility] [id number] [place] [address] [place] [address] [place] [address] Chief Comp: QUESTIONS, GENERAL Social History Tobacco [...] as of this encounter Nursing Notes * Arabella Polanco MD - 08/13/2023 12:44 PM CDT Happy to order semen analysis for her partner though I think the most likely etiology is [place] [address]. Will need name, , and Mrn and his verbal consent to go inhis chart. documented in this encounter Plan of Treatment Upcoming Encounters Date Type Department Care Team (Late st Contact Info) Description 10/13/2023 8:40 AM CDT Appointment [facility] [address] [place] [address] documented as of this encounter Visit Diagnoses Not on filedocumented in this encounter Care Teams Teacher [employer] Relationship Specialty [place] [address] [place] [address] PCP - General Family Practice 05/24/20 documented as of this encounter
--- OUTSIDE RECORDS SUMMARY | 2023-09-29 10:59 | XMS_ITS | Patient Health Record ---
Author Organization [facility] Address [address] [place], [place] [id number] Care Team Providers Care Endless Belt Finisher Name Role Phone Maria Dolores Woodruff Primary Care Provider Allergies No Known Allergies Reason For Referral No Information Medications Medication SIG (Take, Route, Fr equency, Duration) Notes Start Date End Date Status Terconazole 0.4 % 1 applicatorful at b edtime Vaginal Once a day for 7 day(s) 07/18/2021 Active Sprintec 28 Active Social History Tobacco Use: Social History Observation Description Date Details (start date - stop date) Never Smoker NA - NA Tobacco Use/Smoking Question Answer Notes Are you a nonsmoker Alcohol Screen (Audit-C) Question Answer Notes Did you have a drink containing alcohol in the p ast year? No Points 0 Interpretation Negative Problems Problem Type SNOMED Code ICD Code Onset Dates Problem Status W/U Status Risk Notes Problem 276823655 POP-Q stage 2 cystocele (N81.10) Active confirmed Problem 427522223 POP-Q stage 1 cystocele (N81.10) Active confirmed Plan Of Treatment No Information Insurance Providers Payer Name Payer Address Payer Phone Subscriber Number Group Number Insured Name Patient Relationship to Insured Coverage Start Date Coverage End Date [facility] [employer] l (Ins. Bill) [address] [address] [place], [place] [id number] Сергей Marquisfannyniallsu Self - patient is the insured [facility] [address] [place] [id number] Jett Marquissu Self - patient is the insured Medical (General) History Surgical History Surgery Date(Month/Year) wisdom teeth extraction 2009 & 2010 Hospitalization History Reason Date(Month/Year) 12/2015
--- OUTSIDE RECORDS SUMMARY | 2023-09-29 10:59 | XMS_ITS | Encounter Summary ---
Author Organization [facility] Address [address] [place] [address] Care Team Providers Care Facilities Administrator Name Role Phone Drake Anderson MD Primary Care Provider [phone] Reason for Visit * Reason Comments Lab Questions Encounter Details Date Type Department Care Team (Late st Contact Info) Description 07/09/2023 Telephone [facility] [address] [place] [address] [place] [address] [place], [place] [id number] Lab Questions Social History Tobacco Use Types Packs/Day Years [...] as of this encounter Nursing Notes * Sheba Diaz RN - 07/10/2023 10:23 AM CDT Office visit note 06/30/22: Since she is day 3 of her cycle today, we will obtain time independent and day 3 labs today (prolactin, hgb A1C, TSH, AMH, FSH, LH and estradiol). Ordered for progesterone level around day 21-23. Called patient and discussed that obtaining the progesterone lab on day 23 is fine. She states understanding. JODI RN, HCW, care team B 07/10/2023, 10:24 AM * Georgiana Albert - 07/09/2023 4:45 PM CDT Patient scheduled her lab appointment on 07/21/23. Please call to okay the date. [phone], okay to leave a detailed message. * Jordy Parr - 07/09/2023 4:34 PM CDT LMTCB x1 Jordy Parr 07/09/2023, 4:34 PM * Ludmila Cárdenas RN - 07/09/2023 3:35 PM CDT Most accurate/best option would be to have lab done at a lab that is open on the weekend. If patient declines then the closest day to day 21 that we are open. Ludmila Cárdenas RN [facility] CLEANING CREW MEMBER * Sujata Up - 07/09/2023 3:27 PM CDT Other Questions/Concerns/FYI What is your question or concern? Pt to have lab done on day 21 of her cycle. Day 21 falls on a sat and av lab not open. Should pt have lab drawn on Fri or Mon? Have you recently been seen for this? No Is it okay to leave a detailed message on your voicemail? Yes documented in this encounter Plan of Treatment Upcoming Encounters Date Type Department Care Team (Late st Contact Info) Description 10/13/2023 8:40 AM CDT Appointment [facility] [address] [place] [address] documented as of this encounter Visit Diagnoses Not on filedocumented in this encounter Care Teams Facilities Administrator Relationship Specialty [place] [address] [place] [address] PCP - General Family Practice 05/24/20 documented as of this encounter
--- OUTSIDE RECORDS SUMMARY | 2023-09-29 10:59 | XMS_ITS | Encounter Summary ---
Author Organization [facility] Address [address] [place] [address] Care Team Providers Care Bead Supervisor Name Role Phone Drake Anderson MD Primary Care Provider [phone] Encounter Details Date Type Department Care Team (Late st Contact Info) Description 07/21/2023 9:30 AM CDT Lab Visit [address] [phone] Infertility, female, secondary Social History Tobacco Use [...] Info) Description 10/13/2023 8:40 AM CDT Appointment [facility] [address] [place] [address] documented as of this encounter Procedures Procedure Name Priority Date/Time Associated Diagnosis Comments PROGESTERONE ADULT Routine 07/21/2023 9: 26 AM CDT Infertility, female, secondary documented in this encounter Results * Progesterone Adult (07/21/2023 9:26 AM CDT) Progesterone, Adult 13.9 ng/mL 07/21/2023 3:32 PM CDT [facility] Blood Venipuncture / Unknown 07/21/2023 9:26 AM CDT 07/21/2023 9:26 AM CDT Narrative [facility] - 07/21/2023 3:32 PM CDT Expected values for menstruating females Follicular Phase: <0.1-0.3 ng/mL Luteal Phase: 1.2-15.9 ng/mL Expected values for females 1st Trimester (4-12 weeks): 2.8-147.3 ng/mL 2nd Trimester (13-24 weeks): 22.5-95.3 ng/mL 3rd Trimester (25-36 weeks): 27.9-242.5 ng/mL Arabella Polanco MD LAB_1 [facility] [address] documented in this encounter Visit Diagnoses Diagnosis Infertility, female, secondary Female infertility of unspecified origin documented in this encounter Care Teams Bead Supervisor Relationship Specialty [place] [address] [place] [address] PCP - General Family Practice 05/24/20 documented as of this encounter
--- OUTSIDE RECORDS SUMMARY | 2023-09-29 10:59 | XMS_ITS | Encounter Summary ---
Author Organization [facility] Address [address] [place] [address] Care Team Providers Care Viscose Cellar Charge Hand Name Role Phone Drake Anderson MD Primary Care Provider [phone] Reason for Visit * Reason Comments QUESTIONS, GENERAL Entered automaticall y based on patient selection in [facility]. Encounter Details Date Type Department Care Team (Late st Contact Info) Description 06/25/2023 8:55 PM CDT E-Visit [facility] [address] [place] [address] [place] [address] [place] [address] Chief Comp: QUESTIONS, GENERAL Social History Tobacco [...] Notes * Sheba Diaz RN - 07/10/2023 10:22 AM CDT Called patient and educated her that Dr Polanco reviewed her US result from [place] [place] and states it is normal. She states understanding. JODI, RN, HCW, care team B 07/10/2023, 10:23 AM * Arabella Polanco MD - 07/09/2023 8:22 PM CDT Reviewed [facility] US, normal. * Ludmila Cárdenas RN - 07/09/2023 8:21 AM CDT Noted 07/08/2023 US results from [facility] are scanned in to media tab. Will send to provider to review and advise. Ludmila Cárdenas RN [facility] TENNIS COACH * Moriah Conway RN - 07/02/2023 2:31 PM CDT Will send to provider to review and advise. Can she get her ultrasound to this outside clinic per her request. Nurse can fax but may need another order placed outside of [facility]. Moriah Conway TENNIS COACH RN .AV documented in this encounter Plan of Treatment Upcoming Encounters Date Type Department Care Team (Late st Contact Info) Description 10/13/2023 8:40 AM CDT Appointment [facility] [address] [place] [address] documented as of this encounter Visit Diagnoses Not on filedocumented in this encounter Care Teams Viscose Cellar Charge Hand Relationship Specialty [place] [address] [place] [address] PCP - General Family Practice 05/24/20 documented as of this encounter
--- NOTE | 2023-09-29 16:45 | CRLHL7_ITS ---
For Patients: As a result of the Century Cures Act, medical imaging exams and procedure reports are released immediately into your electronic medical record. You may view this report before your referring provider. If you have questions, please contact your health care provider. Indication: DIVERTICULTIS Technique: CT abdomen/pelvis with IV contrast, 80 mL Isovue 370 Comparison: Pelvic ultrasound on 07/07/[address] abdomen/pelvis report on 11/16/2021 Findings: Lower thorax: Unremarkable Abdomen/pelvis: The liver, gallbladder and biliary system, spleen, pancreas, adrenal glands, kidneys, ureters, bladder, retroflexed uterus, and bilateral adnexa are within normal limits in appearance. There is mild circumferential bladder wall thickening, likely secondary to underdistention. There is no evidence of bowel obstruction or inflammation. The appendix is not discretely visualized; however, there are no inflammatory changes in the right lower quadrant to suggest acute appendicitis. There are few scattered colonic diverticula without CT evidence of acute diverticulitis. No free fluid or free air. No abscess. No pathologically enlarged lymph nodes throughout the abdomen or pelvis. The vasculature is unremarkable. Soft tissue/musculoskeletal: Small fat containing abdominal hernia. Mild diastasis recti. The osseous structures are unremarkable in appearance. Impression: No CT evidence of an acute process involving the abdomen or pelvis; specifically, no evidence of acute diverticulitis. Please note that all CT scans at this facility use dose modulation, iterative reconstruction, and/or weight-based dosing when appropriate to reduce radiation dose to as low as reasonably achievable. Dictated by Kojo Shaikh MD @ 09/29/2023 5:21:50 PM (Electronically Signed)
== END 2023-09-29 10:53 | disposition home or self-care (01) ==
PROVIDERS: PCP Family Medicine; Visit Provider Internal Medicine
DX: K57.92 Diverticulitis of intestine, part unspecified, without perforation or abscess without bleeding (principal)
CPT/HCPCS: 74177; 80053; Q9967